=== PATIENT | female | born 1980 | race Caucasian/White ===

== ENCOUNTER → 2023-08-22 17:20 | Outpatient (REF) | payer BC, SELFPAY | LOC: WDC 17:20 | PROVIDERS: ATTENDING PHYSICIAN Obstetrics & Gynecology; FAMILY PHYSICIAN Physician Assistant | DX: Z12.31 Encounter for screening mammogram for malignant neoplasm of breast (principal) | CPT/HCPCS: 77063; 77067 ==

== ENCOUNTER → 2023-12-25 16:06 | Outpatient (REF) | payer BC, SELFPAY | LOC: CLAB 16:06 | PROVIDERS: ATTENDING PHYSICIAN Obstetrics & Gynecology | DX: Z01.419 Encounter for gynecological examination (general) (routine) without abnormal findings (principal); Z11.51 Encounter for screening for human papillomavirus (HPV) | CPT/HCPCS: 87624; G0123 ==

== ENCOUNTER → 2024-02-27 07:33 | Outpatient (REF) | payer BC, SELFPAY ==
[2024-02-27 08:46] LABS: % Basophils 0.5 % (0-2); % Immature Granulocytes 0.3 % (0-0.5); % Lymphocytes 28.1 % (20.5-51.1); % Monocytes 8.3 % (1.7-9.3); % Neutrophils 50.8 % (42.2-75.2); Absolute Eosinophils 0.5 10^3/uL (0-0.7); Absolute Lymphocytes 1.1 10^3/uL (1.2-3.4); Absolute Monocytes 0.3 10^3/uL (0.1-0.6); Absolute Neutrophils 1.9 10^3/uL (1.4-6.5); Hematocrit 32.7 % (37.0-47.0); Hemoglobin 10.2 g/dL (12.0-16.0); Mean Corp Hgb Conc. 31.2 g/dL (33.0-37.0); Mean Corpuscular Hgb 23.9 pg (27.0-31.0); Mean Corpuscular Volume 76.8 fL (81.0-99.0); Mean Platelet Volume 9.8 fL (7.4-10.4); Nucleated Red Blood Cells % 0 %; Platelet Count 225 10^3/uL (130-400); Red Blood Cell Count 4.26 10^6/uL (4.20-5.40); Red Cell Dist. Width 14.6 % (11.5-14.5); Reticulocyte Count 0.8 % (0.4-2.8); White Blood Cell Count 3.7 10^3/uL (4.8-10.8)
[2024-02-27 09:16] LABS: ALT (SGPT) 16 U/L (0-35); AST (SGOT) 22 U/L (14-36); Albumin 4.6 g/dl (3.5-5.0); Alkaline Phosphatase 58 U/L (38-126); Blood Urea Nitrogen 14 mg/dl (7-17); Calcium 9.2 mg/dl (8.4-10.2); Carbon Dioxide 27 mmol/L (22-30); Chloride 104 mmol/L (98-107); Glucose 99 mg/dl (70-99); HDL Cholesterol 54 mg/dl; Iron 37 ug/dl (37-170); LDL Cholesterol, Calculated 104 mg/dl; Potassium 4.4 mmol/L (3.5-5.1); Sodium 144 mmol/L (135-145); Total Bilirubin 0.5 mg/dl (0.2-1.3); Total Cholesterol 168 mg/dl (50-199); Total Protein 7.3 g/dl (6.3-8.2); Triglyceride 53 mg/dl (10-149); Very Low Density Lipoprotein 10 mg/dl (0-30); eGFR > 60.00
[2024-02-27 09:26] LABS: Percent Saturation 8 % (20-50); Total Iron Binding Capacity 443 ug/dl (265-497)
[2024-02-27 09:52] LABS: TSH Reflex To Free T4 1.72 uIU/ml (0.47-4.68)
[2024-02-27 09:56] LABS: Ferritin 6.5 ng/ml (6.24-137)
== END ==
LOC: REG 07:33
PROVIDERS: ATTENDING PHYSICIAN Physician Assistant
DX: D50.9 Iron deficiency anemia, unspecified (principal); R63.5 Abnormal weight gain; Z13.220 Encounter for screening for lipoid disorders; Z13.1 Encounter for screening for diabetes mellitus; Z13.29 Encounter for screening for other suspected endocrine disorder
CPT/HCPCS: 36415; 80053; 80061; 82728; 83540; 83550; 84443; 85025; 85045

== ENCOUNTER 2024-07-24 06:15 | Day surgery (SDC) | payer BC, SELFPAY | END 2024-07-24 13:47 | disposition home or self-care (01) | LOC: GI 06:15 | PROVIDERS: ATTENDING PHYSICIAN Internal Medicine | DX: D50.9 Iron deficiency anemia, unspecified (principal); K29.50 Unspecified chronic gastritis without bleeding | CPT/HCPCS: 43239; 45378; 88305; 88342 ==

== ENCOUNTER → 2024-08-04 11:36 | Outpatient (REF) | payer BC, SELFPAY ==
[2024-08-04 13:44] LABS: IgA 101 mg/dl (70-400)
[2024-08-06 17:49] LABS: tTG IgA Antibody <1.02 FLU (0.00-4.99)
[2024-08-07 01:40] LABS: Endomysial IgA Antibody Titer <1:10 (<1:10)
== END ==
LOC: REG 11:36
PROVIDERS: ATTENDING PHYSICIAN Internal Medicine; FAMILY PHYSICIAN Physician Assistant
DX: D50.9 Iron deficiency anemia, unspecified (principal)
CPT/HCPCS: 36415; 82784; 83516; 86231

== ENCOUNTER → 2024-08-21 12:44 | Outpatient (REF) | payer BC, SELFPAY | LOC: RAD 12:44 | PROVIDERS: ATTENDING PHYSICIAN Internal Medicine; FAMILY PHYSICIAN Physician Assistant | DX: K59.00 Constipation, unspecified (principal) | CPT/HCPCS: 74019 ==

== ENCOUNTER → 2025-01-08 16:04 | Outpatient (REF) | payer BC, SELFPAY | LOC: WDC 16:04 | PROVIDERS: ATTENDING PHYSICIAN Obstetrics & Gynecology; FAMILY PHYSICIAN Physician Assistant | DX: Z12.31 Encounter for screening mammogram for malignant neoplasm of breast (principal) | CPT/HCPCS: 77063; 77067 ==

== ENCOUNTER → 2025-04-10 07:12 | Outpatient (REF) | payer BC, SELFPAY ==
[2025-04-10 08:31] LABS: Hematocrit 34.2 % (37.0-47.0); Hemoglobin 10.4 g/dL (12.0-16.0); Mean Corp Hgb Conc. 30.4 g/dL (33.0-37.0); Mean Corpuscular Volume 78.3 fL (81.0-99.0); Nucleated Red Blood Cells % 0 %; Platelet Count 250 10^3/uL (130-400); Red Cell Dist. Width 14.6 % (11.5-14.5)
[2025-04-10 08:34] LABS: Albumin 4.4 g/dl (3.5-5.0); Blood Urea Nitrogen 17 mg/dl (7-17); Carbon Dioxide 27 mmol/L (22-30); Glucose 105 mg/dl (70-99); Total Protein 7.4 g/dl (6.3-8.2); Very Low Density Lipoprotein 9 mg/dl (0-30); eGFR > 60.00
[2025-04-10 08:43] LABS: ALT (SGPT) 13 U/L (0-35); AST (SGOT) 16 U/L (14-36); Alkaline Phosphatase 44 U/L (38-126); Calcium 9.1 mg/dl (8.4-10.2); Chloride 106 mmol/L (98-107); HDL Cholesterol 69 mg/dl; Iron 31 ug/dl (37-170); LDL Cholesterol, Calculated 124 mg/dl; Potassium 4.2 mmol/L (3.5-5.1); Sodium 137 mmol/L (135-145)
[2025-04-10 08:44] LABS: Total Iron Binding Capacity 513 ug/dl (265-497)
[2025-04-10 09:19] LABS: Ferritin 4.9 ng/ml (6.24-137)
== END ==
LOC: REG 07:12
PROVIDERS: ATTENDING PHYSICIAN Physician Assistant
DX: D50.9 Iron deficiency anemia, unspecified (principal); Z13.220 Encounter for screening for lipoid disorders; Z13.1 Encounter for screening for diabetes mellitus; Z13.29 Encounter for screening for other suspected endocrine disorder
CPT/HCPCS: 36415; 80053; 80061; 82728; 83540; 83550; 85025

== ENCOUNTER → 2025-04-15 07:38 | Outpatient (REF) | payer BC, SELFPAY | LOC: RAD 07:38 | PROVIDERS: ATTENDING PHYSICIAN Obstetrics & Gynecology; FAMILY PHYSICIAN Physician Assistant | DX: N92.4 Excessive bleeding in the premenopausal period (principal) | CPT/HCPCS: 76830; 76856 ==